=== PATIENT | female | born 1965 | race American Indian/Alaskan Native ===

== ENCOUNTER 2019-07-10 17:07 | Inpatient (IN) | payer MEDICAID ==
--- NOTE | 2019-07-10 17:21 | Emergency Department Report ---
Blank Doc - Documentation Documentation: 53 y/o with a myarid of issues ranging from cool burning sensations to left sanchez nd, lower back pain, chest pain and sob off and on and left eyepain and facial burning. off and on for the last 2 weeks. Seen pcp yesterday and was advised to come to ER yesterday but pt went home and dozed off so she decided to come to hospital today his initial assessment/diagnostic orders/clinical plan/treatment(s) is/are subject to change based on patient's health status, clinical progression and re- assessment by fellow clinical providers in the ED. Further treatment and workup at subsequent clinical providers discretion. Patient/guardians urged not to elope from the ED as their condition may be serious if not clinically assessed and managed. Initial orders include: labs evaluate for the need of CT
[2019-07-10] MEDS ORDERED: NACL 0.9% 1000 ML 1,000 ML IV ONE (18:35)
[2019-07-10 18:49] LABS: Basophils # (Auto) 0.1 K/mm3 (0.0-0.1); Basophils % (Auto) 0.9 % (0.0-1.8); Eosinophils # (Auto) 0.1 K/mm3 (0.0-0.4); Hematocrit 36.3 % (30.3-42.9); Hemoglobin 12.1 gm/dl (10.1-14.3); Lymphocytes # (Auto) 3.3 K/mm3 (1.2-5.4); Mean Corpuscular HGB Conc 33 % (30-34); Mean Corpuscular Volume 94 fl (79-97); Monocytes # (Auto) 0.4 K/mm3 (0.0-0.8); Monocytes % (Auto) 6.1 % (0.0-7.3); Platelet Count 252 K/mm3 (140-440); Red Blood Count 3.88 M/mm3 (3.65-5.03); Red Cell Distribution Width 12.9 % (13.2-15.2)
[2019-07-10 18:57] LABS: INR 1.02 (0.87-1.13)
[2019-07-10 18:58] LABS: Partial Thromboplastin Time 30.3 Sec. (24.2-36.6)
[2019-07-10] MEDS ORDERED: MORPHINE IV ONE (19:01)
[2019-07-10 19:06] LABS: Creatine Kinase MB 2.7 ng/mL (0.0-4.0)
[2019-07-10 19:08] LABS: Alanine Aminotransferase 33 units/L (7-56); Albumin 4.1 g/dL (3.9-5); BUN/Creatinine Ratio 14; Blood Urea Nitrogen 13 mg/dL (7-17); Calcium 8.8 mg/dL (8.4-10.2); Hemolysis Index 3
--- NOTE | 2019-07-10 19:13 | XRay Report ---
CHEST 2 VIEWS INDICATION: Chest Pain. COMPARISON: none FINDINGS: Support devices: None. Heart: Within normal limits. Lungs: No acute air space or interstitial disease. Pleura: No significant pleural effusion. No pneumothorax. Additional findings: None. IMPRESSION: 1. No acute findings. Signer Name: Albino Watson MD Signed: 07/10/2019 7:08 PM Workstation Name: [id number]
--- NOTE | 2019-07-10 19:22 | Emergency Department Report ---
ED General Adult HPI - General Chief complaint: Neuro Symptoms/Deficit Stated complaint: BACK PAIN/HAND PAIN Time Seen by Provider: 07/10/19 17:17 Source: patient Mode of arrival: Ambulatory Limitations: Physical Limitation - History of Present Illness Initial comments: This is a 53-year-old female nontoxic, well nourished in appearance, no acute signs of distress presents to the ED with c/o of bilateral upper and lower legs numbness and tingling sensation x years as well as chest pains and shortness of breathe. Stated that symptoms has worsened the past 2 weeks. Patient stated that has symptoms worse in the left sided then the right. Patient stated was sent by PCP for a CT of head. Patient denies any facial drooping, one-sided weakness, headache, or fatigue. Patient currently denies any pain. 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 Patient stated that her salesperson [employer] is trying to rule out if she has diabetic neuropathy. Patient denies any upper respiratory symptoms. Patient denies any hemoptysis, fever, chills, nausea, vomiting, headache, stiff neck, abdominal pain. Patient denies any recent travels or long car rides. Patient denies any recent surgeries or any sick contacts. Patient denies any drug allergies. Past medical history includes diabetes, CAD, and hypertension. Patient stated she has a talent sourcing specialist (Dr. Nieto) and saw him about 3 weeks ago. -: week(s) (2) Location: upper extremity, lower extremity Radiation: non-radiation Severity scale (0 -10): 3 Quality: burning Consistency: constant Improves with: none Worsens with: none Associated Symptoms: chest pain. denies: confusion, cough, diaphoresis, fever/chills, headaches, loss of appetite, malaise, nausea/vomiting, rash, syncope, weakness - Related Data Home Medications Medication Instructions Recorded Confirmed Last Taken Carvedilol [Coreg] 25 mg PO DAILY 04/22/15 07/10/19 07/09/19 Glimepiride [Amaryl] 2 mg PO BID 04/22/15 07/10/19 07/09/19 Insulin Glargine,Hum.rec.anlog 30 units SQ QHS 04/22/15 07/10/19 07/09/19 [Lantus Solostar] Simvastatin (Nf) [Zocor TAB] 20 mg PO QHS 04/22/15 07/10/19 07/09/19 raNITIdine HCl [Zantac 300 MG TAB] 300 mg PO BID 04/22/15 07/10/19 07/09/19 Zolpidem [Ambien] 10 mg PO QHS 07/10/19 07/10/19 07/04/19 traMADol [Ultram] 50 mg PO Q6HR PRN 07/10/19 07/10/19 07/09/19 Previous Rx's Medication Instructions Recorded Last Taken Type Naproxen [Naprosyn TAB] 500 mg PO BID PRN #20 tablet 04/23/15 07/09/19 Rx diazePAM TAB [Valium] 2 mg PO TID PRN #15 tablet 04/23/15 07/09/19 Rx HYDROcodone/APAP 5-325 [[place] 1 each PO Q6HR PRN #10 tablet 05/13/15 07/09/19 Rx 5/325] Allergies Allergy/AdvReac Type Severity Reaction Status Date / Time No Known Allergies Allergy Verified 07/10/19 17:08 ED Review of Systems ROS: Stated complaint: BACK PAIN/HAND PAIN Other details as noted in HPI Constitutional: denies: chills, fever Eyes: denies: eye pain, eye discharge, vision change ENT: denies: ear pain, throat pain Respiratory: shortness of breath. denies: cough, wheezing Cardiovascular: chest pain. denies: palpitations Endocrine: no symptoms reported Gastrointestinal: denies: abdominal pain, nausea, diarrhea Genitourinary: denies: urgency, dysuria, discharge Musculoskeletal: denies: back pain, joint swelling, arthralgia Skin: denies: rash, lesions Neurological: denies: headache, weakness, paresthesias Psychiatric: denies: anxiety, depression Hematological/Lymphatic: denies: easy bleeding, easy bruising ED Past Medical Hx - Past Medical History Hx Hypertension: Yes Hx Diabetes: Yes Additional medical history: high cholesterol - Surgical History Hx Appendectomy: Yes Additional Surgical History: total right knee replacement - Social History Smoking Status: Never Smoker - Medications Home Medications: Home Medications Medication Instructions Recorded Confirmed Last Taken Type Carvedilol [Coreg] 25 mg PO DAILY 04/22/15 07/10/19 07/09/19 History Glimepiride [Amaryl] 2 mg PO BID 04/22/15 07/10/19 07/09/19 History Insulin Glargine,Hum.rec.anlog 30 units SQ QHS 04/22/15 07/10/19 07/09/19 History [Lantus Solostar] Simvastatin (Nf) [Zocor TAB] 20 mg PO QHS 04/22/15 07/10/19 07/09/19 History raNITIdine HCl [Zantac 300 MG TAB] 300 mg PO BID 04/22/15 07/10/19 07/09/19 History Naproxen [Naprosyn TAB] 500 mg PO BID PRN #20 tablet 04/23/15 07/10/19 07/09/19 Rx diazePAM TAB [Valium] 2 mg PO TID PRN #15 tablet 04/23/15 07/10/19 07/09/19 Rx HYDROcodone/APAP 5-325 [[place] 1 each PO Q6HR PRN #10 tablet 05/13/15 07/10/19 07/09/19 Rx 5/325] Zolpidem [Ambien] 10 mg PO QHS 07/10/19 07/10/19 07/04/19 History traMADol [Ultram] 50 mg PO Q6HR PRN 07/10/19 07/10/19 07/09/19 History ED Physical Exam - General Limitations: Physical Limitation General appearance: alert, in no apparent distress - Head Head exam: Present: atraumatic, normocephalic - Eye Eye exam: Present: normal appearance - Neck Neck exam: Present: normal inspection, full ROM. Absent: tenderness, meningismus, lymphadenopathy - Respiratory Respiratory exam: Present: normal lung sounds bilaterally. Absent: respiratory distress, wheezes, rales, rhonchi, stridor, chest wall tenderness, accessory muscle use, decreased breath sounds, prolonged expiratory - Cardiovascular Cardiovascular Exam: Present: regular rate, normal rhythm, normal heart sounds. Absent: bradycardia, tachycardia, irregular rhythm, systolic murmur, diastolic murmur, rubs, gallop - GI/Abdominal GI/Abdominal exam: Present: soft, normal bowel sounds. Absent: distended, tenderness, guarding, rebound, rigid, diminished bowel sounds - Extremities Exam Extremities exam: Present: normal inspection, full ROM, normal capillary refill. Absent: tenderness - Back Exam Back exam: Present: normal inspection, full ROM. Absent: tenderness, CVA tenderness (R), CVA tenderness (L), muscle spasm, paraspinal tenderness, vertebral tenderness, rash noted - Neurological Exam Neurological exam: Present: alert, oriented X3, normal gait - Expanded Neurological Exam Expanded Patient oriented to: Present: person, place, time Cranial nerves: EOM's Intact: Normal, Facial Sensation: Normal Upper motor neuron: Pronator Drift: Normal, Sensory Extinction: Normal Motor strength exam: RUE: 5, LUE: 5, RLE: 5, LLE: 5 Best Eye Response ([place]): (4) open spontaneously Best Motor Response ([place]): (6) obeys commands Best Verbal Response ([place]): (5) oriented [place] Total: 15 - Psychiatric Psychiatric exam: Present: normal affect, normal mood - Skin Skin exam: Present: warm, dry, intact, normal color. Absent: rash ED Course Vital Signs 07/10/19 07/10/19 07/10/19 17:16 19:15 20:00 Temperature 98.4 F 98.4 F Pulse Rate 70 70 67 Respiratory 16 13 14 Rate Blood Pressure 144/84 138/75 Blood Pressure 138/75 [Left] O2 Sat by Pulse 98 97 98 Oximetry 07/10/19 07/10/19 07/10/19 20:30 21:00 21:30 Temperature Pulse Rate 62 63 59 L Respiratory 12 12 14 Rate Blood Pressure 148/82 133/75 150/86 Blood Pressure [Left] O2 Sat by Pulse 93 98 94 Oximetry - Reevaluation(s) Reevaluation #1: 07/10/19 19:24 Patient is speaking in full sentences with no signs of distress noted. - Consultations Consultation #1: 07/10/19 20:21 Patient has been consulted with Dr. Jha (talent sourcing specialist) about patient history, physical exam, and labs and agrees for admission and to give blood thinners and will perform a stress test tomorrow. Consultation #2: 07/10/19 22:31 Patient has been consulted with Dr. Manjarrez (hospitalist) about patient history, physical exam, and labs and accepts patients to services. ED Medical Decision Making - Lab Data Result diagrams: 07/10/19 18:23 10/24/19 18:38 - Medical Decision Making This is a 53-year-old female that presents with acute onset of A. fib, right bundle jamie block. Patient is currently stable and was examined by me. Neuro exam normal. CT head obtained. PAtient was consulted with Chase Simon. Dr. Jha consulted and patient to be admitted. EKG obtained with no STEMI and signed by Dr. Pelaez. Admitted by Dr. Manjarrez. Labs obtained. At time of admission, the patient does not seem toxic or ill in appearance. No acute signs of distress noted. Patient agrees to admission treatment plan of care. No further questions noted by the patient. - Differential Diagnosis diabetic neuropathy, STEMI, stroke Critical care attestation.: If time is entered above; I have spent that time in minutes in the direct care of this critically ill patient, excluding procedure time. ED Disposition Clinical Impression: RBBB A-fib Qualifiers: Atrial fibrillation type: unspecified Qualified Code(s): I48.91 - Unspecified atrial fibrillation Diabetic neuropathy Qualifiers: Diabetes mellitus type: type 2 Diabetes mellitus complication detail: with other neurological complication Qualified Code(s): E11.49 - Type 2 diabetes mellitus with other diabetic neurological complication Disposition: 09 OP ADMIT IP TO THIS HOSP Is pt being admited?: Yes Condition: Stable
--- NOTE | 2019-07-10 19:37 | Cat Scan Report ---
CT head/brain wo con INDICATION / CLINICAL INFORMATION: 53 years Female; left sided weakness. TECHNIQUE: Routine CT head without contrast. All CT scans at this location are performed using CT dos e reduction for ALARA by means of automated exposure control. COMPARISON: None. FINDINGS: BRAIN / INTRACRANIAL CONTENTS: No acute hemorrhage, mass effect, midline shift, hydrocephalus, or acu te, large territorial infarct. No chronic infarct or focal atrophy. No significant white matter abnor mality. CRANIOCERVICAL JUNCTION: No significant abnormality. ORBITS: No significant abnormality of visualized orbits. SINUSES / MASTOIDS: No significant abnormality the visualized paranasal sinuses or mastoid air cells. ADDITIONAL FINDINGS: None. IMPRESSION: 1. No focal mass, hemorrhage, hydrocephalus, or acute, large territorial infarct. Signer Name: Edmundo Snow MD, III Signed: 07/10/2019 7:33 PM Workstation Name: [id number]
[2019-07-10] MEDS ORDERED: ENOXAPARIN SUB-Q ONE (20:20)
[2019-07-10 22:03] LABS: Amphetamine Screen,Urine PRESUMPTIVE NEGATIVE; Benzodiazepines Screen,Urine PRESUMPTIVE NEGATIVE; Cannabinoid Screen,Urine PRESUMPTIVE NEGATIVE; Cocaine Screen,Urine PRESUMPTIVE NEGATIVE; Methadone Screen,Urine PRESUMPTIVE NEGATIVE; Opiate Screen,Urine PRESUMPTIVE NEGATIVE
[2019-07-10 22:28] LABS: Bilirubin,Urine NEG (Negative); Blood,Urine NEG (Negative); Color,Urine Straw (Yellow); Mucus,Urine FEW /HPF; Protein,Urine <15 mg/dL mg/dL (Negative); Urobilinogen,Urine < 2.0 mg/dL (<2.0); WBC,Urine < 1.0 /HPF (0.0-6.0)
--- NOTE | 2019-07-10 23:40 | History and Physical Report ---
History of Present Illness Date of examination: 07/10/19 History of present illness: 53-year-old woman history of hypertension, diabetes, hyperlipidemia comes emergency room with complaints that her entire body feels cold. Also complain of chest pain and left chest that started on Sunday which she described as a dull sensation, intermittent every 5 minutes, intensity follow 10, no radiation, can't identify exacerbating or relieving factors. Admits to shortness of breath, left side numbness. In the emergency room her EKG shows new onset A. fib eview Of Systems: Constitutional: no weight loss, fever, chills Ears, eyes, nose, mouth and throat: no nasal congestion, no nasal discharge, no sinus pressure, blurry vision, diplopia Neck: No neck pain or rigidity. Cardiovascular: No palpitations Respiratory: No cough Gastrointestinal: No hematochezia, abdominal pain Genitourinary : no dysuria, frequency , hematuria Musculoskeletal: no muscle ache , joint pain Integumentary: no rash, no pruritis Neurological: no parathesias, focal weakness Endocrine: no cold or heat intolerance, no polyuria or polydipsia Hematologic/Lymphatic: no easy bruising, no easy bleeding, no gland swelling Allergic/Immunologic: no urticaria, no angioedema. PAST MEDICAL HISTORY:hypertension, diabetes, hyperlipidemia PAST SURGICAL HISTORY:Appendectomy, bilateral knee replacement FAMILY HISTORY:hypertension, diabetes SOCIAL HISTORY: Denies tobacco, drugs, alcohol Medications and Allergies Allergies Allergy/AdvReac Type Severity Reaction Status Date / Time No Known Allergies Allergy Verified 07/10/19 23:59 Home Medications Medication Instructions Recorded Confirmed Last Taken Type Carvedilol [Coreg] 25 mg PO DAILY 04/22/15 07/10/19 07/09/19 History Glimepiride [Amaryl] 2 mg PO BID 04/22/15 07/10/19 07/09/19 History Insulin Glargine,Hum.rec.anlog 30 units SQ QHS 04/22/15 07/10/19 07/09/19 History [Lantus Solostar] Simvastatin (Nf) [Zocor TAB] 20 mg PO QHS 04/22/15 07/10/19 07/09/19 History raNITIdine HCl [Zantac 300 MG TAB] 300 mg PO BID 04/22/15 07/10/19 07/09/19 History Naproxen [Naprosyn TAB] 500 mg PO BID PRN #20 tablet 04/23/15 07/10/19 07/09/19 Rx diazePAM TAB [Valium] 2 mg PO TID PRN #15 tablet 04/23/15 07/10/19 07/09/19 Rx HYDROcodone/APAP 5-325 [[place] 1 each PO Q6HR PRN #10 tablet 05/13/15 07/10/19 07/09/19 Rx 5/325] Zolpidem [Ambien] 10 mg PO QHS 07/10/19 07/10/19 07/04/19 History traMADol [Ultram] 50 mg PO Q6HR PRN 07/10/19 07/10/19 07/09/19 History Exam - Physical Exam Narrative exam: General Apperance: The patient sitting in bed no acute distress HEENT: Normocephalic, atraumatic. Pupils equally round and reactive to light, extraocular movement intact, and no sclericterus or JVD or thyromegaly or nodule. Neck supple, no carotid bruit, mucous membranes moist, no exudate or erythema Heart: S1-S2, regular is rhythm Lungs: Clear to auscultation bilaterally, breathing comfortable Abdomen: Positive bowel sounds, soft, nontender, nondistended, no organomegaly Extremities: No edema cyanosis clubbing Skin: no rash, nodule, warm and dry Neuro:CN 2 -12 intact, motor/sensory intact, speech is fluent - Constitutional Vitals: Temp Pulse Resp BP Pulse Ox 98.4 F 62 12 146/83 94 07/10/19 19:15 07/10/19 23:30 07/10/19 23:30 07/10/19 23:30 07/10/19 23:30 Results - Labs CBC & Chem 7: 07/10/19 18:23 07/10/19 18:38 Labs: Abnormal lab results 07/10/19 07/10/19 07/10/19 Range/Units 18:23 18:23 18:38 RDW 12.9 L (13.2-15.2) % Lymph % (Auto) 49.0 H (13.4-35.0) % Sodium 135 L (137-145) mmol/L Chloride 97.0 L (98-107) mmol/L Glucose 160 H (65-100) mg/dL POC Glucose (70-105) Total Creatine Kinase 232 H (30-135) units/L 07/10/19 Range/Units 19:45 RDW (13.2-15.2) % Lymph % (Auto) (13.4-35.0) % Sodium (137-145) mmol/L Chloride (98-107) mmol/L Glucose (65-100) mg/dL POC Glucose 151 H (70-105) Total Creatine Kinase (30-135) units/L - Imaging and Cardiology Chest x-ray: report reviewed CT Scan - head: report reviewed Assessment and Plan Assessment New-onset A. fib Chest pain Hypertension Diabetes Hyperlipidemia Plan Admit to medicine start full dose Lovenox, consult cardiology Check cardiac enzymes,TSH, obtain stress test Check fingersticks, start sliding scale DVT prophalaxis, the morphine
[2019-07-11] MEDS ORDERED: SODIUM CHLORIDE FLUSH SYRINGE 10 ML IV PRN (00:15)
[2019-07-11] MEDS ORDERED: TYLENOL PO PRN (00:15)
[2019-07-11] MEDS ORDERED: ZOFRAN IV PRN (00:15)
[2019-07-11] MEDS ORDERED: D50W (25GM) Syringe IV PRN (00:15)
[2019-07-11] MEDS ORDERED: NACL 0.45% 1000 ML 1,000 ML IV SCH (01:00)
[2019-07-11] MEDS ORDERED: ENOXAPARIN SUB-Q SCH ×4 (01:00→22:00)
[2019-07-11] MEDS ORDERED: AFLURIA QUAD 2019-2020 (3YR UP) IM ONE ×2 (01:41→12:00)
[2019-07-11 02:47] LABS: Creatine Kinase MB 2.4 ng/mL (0.0-4.0)
[2019-07-11] MEDS: HumaLOG SUB-Q SCH ×2 (06:18→12:47)
[2019-07-11] MEDS ORDERED: LEXISCAN IV ONE (06:45)
[2019-07-11 07:09] LABS: Creatine Kinase MB 1.9 ng/mL (0.0-4.0)
[2019-07-11] MEDS ORDERED: SODIUM CHLORIDE FLUSH SYRINGE 10 ML IV SCH (10:00)
--- NOTE | 2019-07-11 14:17 | Progress Note ---
Assessment and Plan Assessment and plan: Chest pain Hypertension Diabetes mellitus type 2 Hyperlipidemia morbid obesity Plan Admitted to medicine patient evaluated by Cardiology and afib ruled out Cardiology following Stress test negative Check fingersticks, start sliding scale History Interval history: Chest pain Hospitalist Physical - Physical exam Narrative exam: Gen: Not in acute distress, lying in bed,morbidly obese HEENT: Normocephalic, atraumatic Neck: supple, no JVD Heart: S1 and S2 reg, no murmurs, rubs or gallop Lungs: Clear to auscultation, no rhonchi, no wheeze Abd: soft, non tender, non distended, normal BS, Ext: No edema, no clubbing, no cyanosis Neuro: Awake, alert, oriented X 3, no focal neurological signs, moves all ext - Constitutional Vitals: Temp Pulse Resp BP Pulse Ox 98.4 F 69 18 141/80 98 07/11/19 08:03 07/11/19 09:00 07/11/19 08:03 07/11/19 10:44 07/11/19 13:00 Results - Labs CBC & Chem 7: 07/10/19 18:23 07/10/19 18:38 Labs: Laboratory Last Values WBC 6.8 K/mm3 (4.5-11.0) 07/10/19 18:23 RBC 3.88 M/mm3 (3.65-5.03) 07/10/19 18:23 Hgb 12.1 gm/dl (10.1-14.3) 07/10/19 18:23 Hct 36.3 % (30.3-42.9) 07/10/19 18:23 MCV 94 fl (79-97) 07/10/19 18:23 MCH 31 pg (28-32) 07/10/19 18:23 MCHC 33 % (30-34) 07/10/19 18:23 RDW 12.9 % (13.2-15.2) L 07/10/19 18:23 Plt Count 252 K/mm3 (140-440) 07/10/19 18:23 Lymph % (Auto) 49.0 % (13.4-35.0) H 07/10/19 18:23 [place] % (Auto) 6.1 % (0.0-7.3) 07/10/19 18:23 Eos % (Auto) 2.0 % (0.0-4.3) 07/10/19 18:23 Baso % (Auto) 0.9 % (0.0-1.8) 07/10/19 18:23 Lymph # 3.3 K/mm3 (1.2-5.4) 07/10/19 18:23 [place] # 0.4 K/mm3 (0.0-0.8) 07/10/19 18:23 Eos # 0.1 K/mm3 (0.0-0.4) 07/10/19 18:23 Baso # 0.1 K/mm3 (0.0-0.1) 07/10/19 18:23 Seg Neutrophils % 42.0 % (40.0-70.0) 07/10/19 18:23 Seg Neutrophils # 2.9 K/mm3 (1.8-7.7) 07/10/19 18:23 PT 13.3 Sec. (12.2-14.9) 07/10/19 18:23 INR 1.02 (0.87-1.13) 07/10/19 18:23 APTT 30.3 Sec. (24.2-36.6) 07/10/19 18:23 Sodium 135 mmol/L (137-145) L 07/10/19 18:38 Potassium 3.9 mmol/L (3.6-5.0) 07/10/19 18:38 Chloride 97.0 mmol/L (98-107) L 07/10/19 18:38 Carbon Dioxide 24 mmol/L (22-30) 07/10/19 18:38 Anion Gap 18 mmol/L 07/10/19 18:38 BUN 13 mg/dL (7-17) 07/10/19 18:38 Creatinine 0.9 mg/dL (0.7-1.2) 07/10/19 18:38 Estimated GFR > 60 ml/min 07/10/19 18:38 BUN/Creatinine Ratio 14 % 07/10/19 18:38 Glucose 160 mg/dL (65-100) H 07/10/19 18:38 POC Glucose 147 (70-105) H 07/11/19 11:43 Calcium 8.8 mg/dL (8.4-10.2) 07/10/19 18:38 Total Bilirubin 0.30 mg/dL (0.1-1.2) 07/10/19 18:38 AST 32 units/L (5-40) 07/10/19 18:38 ALT 33 units/L (7-56) 07/10/19 18:38 Alkaline Phosphatase 106 units/L (35-129) 07/10/19 18:38 Total Creatine Kinase 181 units/L (30-135) H 07/11/19 05:58 CK-MB (CK-2) 1.9 ng/mL (0.0-4.0) 07/11/19 05:58 CK-MB (CK-2) Rel Index 1.0 (0-4) 07/11/19 05:58 Troponin T < 0.010 ng/mL (0.00-0.029) 07/11/19 05:58 Total Protein 8.0 g/dL (6.3-8.2) 07/10/19 18:38 Albumin 4.1 g/dL (3.9-5) 07/10/19 18:38 Albumin/Globulin Ratio 1.1 % 07/10/19 18:38 TSH 1.200 mlU/mL (0.270-4.200) 07/11/19 05:58 Urine Color Straw (Yellow) 07/10/19 21:20 Urine Turbidity Clear (Clear) 07/10/19 21:20 Urine pH 7.0 (5.0-7.0) 07/10/19 21:20 Ur Specific [place] 1.006 (1.003-1.030) 07/10/19 21:20 Urine Protein <15 mg/dl mg/dL (Negative) 07/10/19 21:20 Urine Glucose (UA) Neg mg/dL (Negative) 07/10/19 21:20 Urine Ketones Neg mg/dL (Negative) 07/10/19 21:20 Urine Blood Neg (Negative) 07/10/19 21:20 Urine Nitrite Neg (Negative) 07/10/19 21:20 Urine Bilirubin Neg (Negative) 07/10/19 21:20 Urine Urobilinogen < 2.0 mg/dL (<2.0) 07/10/19 21:20 Ur Leukocyte Esterase Neg (Negative) 07/10/19 21:20 Urine WBC (Auto) < 1.0 /HPF (0.0-6.0) 07/10/19 21:20 Urine RBC (Auto) 2.0 /HPF (0.0-6.0) 07/10/19 21:20 Urine Mucus Few /HPF 07/10/19 21:20 Urine Opiates Screen Presumptive negative 07/10/19 21:20 Urine Methadone Screen Presumptive negative 07/10/19 21:20 Ur Barbiturates Screen Presumptive negative 07/10/19 21:20 Ur Phencyclidine Scrn Presumptive negative 07/10/19 21:20 Ur Amphetamines Screen Presumptive negative 07/10/19 21:20 U Benzodiazepines Scrn Presumptive negative 07/10/19 21:20 Urine Cocaine Screen Presumptive negative 07/10/19 21:20 U Marijuana (THC) Screen Presumptive negative 07/10/19 21:20 Drugs of Abuse Note Disclamer 07/10/19 21:20 Active Medications - Current Medications Current Medications: Generic Name Dose Route Start Last Admin Trade Name Freq PRN Reason Stop Dose Admin Acetaminophen 650 mg 07/11/19 00:15 Tylenol PO Q4H PRN Pain MILD(1-3)/Fever >100.5/HE Dextrose 50 ml 07/11/19 00:15 D50w (25gm) Syringe IV Q30MIN PRN Hypoglycemia Enoxaparin Sodium 100 mg 07/11/19 10:00 Enoxaparin SUB-Q Q12HR [facility] Insulin Human Lispro 0 unit 07/11/19 06:00 07/11/19 06:18 Humalog SUB-Q Not Given Q6HR [facility] Protocol Morphine Sulfate 2 mg 07/11/19 00:15 Morphine IV Q4H PRN Pain, Moderate (4-6) Ondansetron HCl 4 mg 07/11/19 00:15 Zofran IV Q8H PRN Nausea And Vomiting Sodium Chloride 10 ml 07/11/19 10:00 Sodium Chloride Flush Syringe 10 Ml IV BID GIRISH Sodium Chloride 10 ml 07/11/19 00:15 Sodium Chloride Flush Syringe 10 Ml IV PRN PRN LINE FLUSH
--- NOTE | 2019-07-11 14:27 | Event Note ---
Date: 07/11/19 Detailed cardiology consultation dictated. Pt presented with c/o chest pain, dyspnea, neurological symptoms. She reports she has seen Dr. Nieto in the past but there are no records of this patient in the [facility] system. Admission ECG showed NSR with PACs (NOT AFib) with RBBB, RBBB has since resolved. No evidence of atrial fibrillation on telemetry since admission. She underwent lexiscan MPI stress test this morning which was negative. We will obtain echo and continue to monitor on telemetry overnight. Tiffanie MILAN NP / DR. Juan WHITAKER
[2019-07-11] MEDS: MORPHINE IV PRN (16:00)
--- NOTE | 2019-07-11 17:07 | Treadmill Report ---
NUCLEAR STRESS TEST PROTOCOL: The patient was brought to the stress lab in a postoperative state, given 10 mCi of technetium 99m at rest. The patient underwent rest imaging. The patient underwent Lexiscan stress test. At peak stress, the patient was given 26 mCi of technetium 99m. Shortly thereafter, the patient underwent stress imaging. Raw imaging reveals mild GI artifact. No significant motion artifact. SPECT images examined carefully in horizontal long axis, vertical long axis, short axis views. There is normal homogenous uptake of radioisotope in all reported segments. No evidence of significant fixed or reversible perfusion defects suggestive of prior infarction or ischemia. Gated wall motion reveals normal systolic thickening, calculated ejection fraction of 60%. No TID. CONCLUSIONS: 1. Normal myocardial perfusion scan without evidence of active ischemia or prior infarction. 2. Normal left ventricular systolic performance without evidence of transient ischemic dilatation or stress-induced segmental wall motion abnormalities. 3. Normal Lexiscan stress test without evidence of diagnostic ST changes, arrhythmias, or chest pain during stress or recovery. [facility]# [id number] JENSEN/ROMMEL
--- NOTE | 2019-07-11 18:44 | Consultation ---
REFERRING PHYSICIAN: Dr. Daya Manjarrez. HISTORY OF PRESENT ILLNESS: The patient is a pleasant, 53-year-old, -[place] female, who has a medical history of diabetes, coronary artery disease, and hypertension, who presents to the Emergency Room with a myriad of symptoms including bilateral upper and lower leg pain, hand numbness, sharp chest pain, and shortness of breath. This has been going on for 2 weeks. Inpatient and outpatient medications are reviewed. She is seen in stress lab. She is now chest pain free, feeling much better. Apparently, her last hemoglobin A1c was 11. She also sees Neurology who is trying to rule out diabetic neuropathy. ALLERGIES: No known drug, food, or environmental allergies. REVIEW OF SYSTEMS: As per HPI. No abdominal pain, blurred vision, headache, fevers, chills, skin rashes, back pain, or joint pain. PAST MEDICAL HISTORY: As aforementioned. PAST SURGICAL HISTORY: Total right knee replacement. SOCIAL HISTORY: Lifetime nonsmoker. PHYSICAL EXAMINATION: VITAL SIGNS: Blood pressure is 140/80. She is afebrile. Tele reveals sinus rhythm. O2 sats 98% on room air. Respirations 12. GENERAL: This is a middle-aged, -[place] female in no apparent distress, oriented x 3. HEENT: Sclerae icteric. NECK: Supple. No mass or JVD. CHEST: Clear to auscultation bilaterally. Good air movement. CARDIOVASCULAR: Regular rhythm, S1, S2. ABDOMEN: Soft, nontender, and nondistended. Normoactive bowel sounds in all 4 quadrants. No organomegaly or masses or bruits. EXTREMITIES: No cyanosis, clubbing, edema. Good peripheral pulses. SKIN: Intact. No rashes. LABORATORY DATA: Initial EKG in the ER, likely shows sinus bradycardia, heart rate of 55, with a right bundle-branch block and left anterior fascicular block. I do not see any evidence of atrial fibrillation here. However, a.m. EKG shows normal sinus rhythm, normal axis, and QRS is narrowed to normal. No atrial fibrillation seen on Tele overnight. Nuclear stress test this morning was negative for ischemia, normal LV function. Echocardiogram is pending. LABORATORY DATA: CBC is essentially normal. Creatinine and potassium are normal. Troponins are negative x 2. UDS is negative as is the urinalysis. Chest x-ray is unremarkable for acute findings. Head CT is also unremarkable for acute findings. ASSESSMENT AND PLAN: In summary, the patient is a pleasant, 53-year-old, -[place] female here with several nonspecific symptoms including leg weakness, hand numbness, atypical chest pain, and shortness of breath. Nuclear stress test is unremarkable. Initial EKG shows sinus bradycardia with left anterior fascicular block. Follow up EKG shows narrowing of QRS, normal sinus rhythm. Nuclear stress test is unremarkable. Follow up on echocardiogram. We would watch her on Tele overnight. Aggressive primary and secondary prevention measures discussed. Thank you for the consultation. We will be happy following with you. JOB# [id number]/[id number]
[2019-07-11] MEDS ORDERED: AMBIEN PO SCH (22:00)
[2019-07-12] MEDS: HumaLOG SUB-Q SCH ×2 (00:58→05:59)
[2019-07-12] MEDS: MORPHINE IV PRN (08:09)
--- NOTE | 2019-07-12 10:15 | Progress Note ---
Assessment and Plan Atypical chest pain CAD Hypertension Diabetes Stable cardiac status myocardial perfusion scan: Negative for ischemia Echo: Moderate LVH, EF 50-55% Patient should follow with Dr. Monica Jha as outpatient [phone] Subjective Date of service: 07/12/19 Principal diagnosis: atypical chest pain Interval history: Patient is sitting up in bed with complaints of a headache. She also reports that her hands are cold. She denies any chest pain or shortness of breath. Objective Vital Signs Temp Pulse Resp BP Pulse Ox 07/12/19 08:21 96 07/12/19 08:09 24 07/12/19 05:05 98.4 F 77 18 151/83 95 07/11/19 23:19 98.7 F 73 18 152/81 92 07/11/19 20:23 98.7 F 70 20 133/73 90 07/11/19 19:07 77 07/11/19 17:00 69 07/11/19 16:00 20 07/11/19 13:00 98 07/11/19 10:44 141/80 07/11/19 10:43 139/79 07/11/19 10:42 142/81 07/11/19 10:41 140/82 07/11/19 10:40 135/79 - Physical Examination General: No Apparent Distress HEENT: Positive: PERRL Neck: Positive: neck supple Cardiac: Positive: Reg Rate and Rhythm, S1/S2 Lungs: Positive: clear to auscultation, Normal Breath Sounds Neuro: Positive: Grossly Intact Abdomen: Positive: Soft, Active Bowel Sounds Gait: Normal Gait Extremities: Present: normal, warm. Absent: edema
[2019-07-12 10:30] LABS: Basophils # (Auto) 0.1 K/mm3 (0.0-0.1); Basophils % (Auto) 1.3 % (0.0-1.8); Eosinophils # (Auto) 0.1 K/mm3 (0.0-0.4); Hematocrit 38.8 % (30.3-42.9); Hemoglobin 13.1 gm/dl (10.1-14.3); Lymphocytes # (Auto) 3.2 K/mm3 (1.2-5.4); Lymphocytes % (Auto) 48.2 % (13.4-35.0); Mean Corpuscular HGB Conc 34 % (30-34); Mean Corpuscular Volume 93 fl (79-97); Monocytes # (Auto) 0.4 K/mm3 (0.0-0.8); Monocytes % (Auto) 6.5 % (0.0-7.3); Platelet Count 252 K/mm3 (140-440); Red Blood Count 4.15 M/mm3 (3.65-5.03); Red Cell Distribution Width 13.1 % (13.2-15.2)
[2019-07-12 10:54] LABS: BUN/Creatinine Ratio 12; Blood Urea Nitrogen 11 mg/dL (7-17); Hemolysis Index 16
[2019-07-12] MEDS ORDERED: COREG PO SCH (12:00)
--- NOTE | 2019-07-12 12:07 | Discharge Summary ---
Providers - Providers Date of Admission: 07/10/19 23:39 Date of discharge: 07/12/19 Attending physician: MATTHEW CHÁVEZ 07/11/19 00:19 Consult to Physician [CONS] Routine Comment: Consulting Provider: WILLIAM WHITAKER Physician Instructions: Reason For Exam: afib/cp Primary care physician: ESTUARDO SWIFT Hospitalization Condition: Fair Disposition: DC-01 TO HOME OR SELFCARE Exam - Constitutional Vitals: Temp Pulse Resp BP Pulse Ox 98.4 F 77 24 151/83 96 07/12/19 05:05 07/12/19 05:05 07/12/19 08:09 07/12/19 05:05 07/12/19 08:21 Plan Activity: advance as tolerated Diet: low fat, low cholesterol, low salt, diabetic Plan of Treatment: 1.Follow up with Dr. Estuardo Swift in 1 week. 2.Follow up with Dr. William Whitaker, cardiology in 1 week Follow up with: ESTUARDO SWIFT MD [Primary Care Provider] - 7 Days
[2019-07-12 12:42] VITALS: BP 135/69
== END 2019-07-12 16:26 | disposition home or self-care (01) | DRG 313 ==
LOC: ED 17:07 → 4A 23:39
PROVIDERS: ADMIT Internal Medicine; ATTEND Internal Medicine
DX: R07.89 Other chest pain (principal); I25.10 Atherosclerotic heart disease of native coronary artery without angina pectoris; E78.00 Pure hypercholesterolemia, unspecified; I45.10 Unspecified right bundle-branch block; E11.49 Type 2 diabetes mellitus with other diabetic neurological complication; Z96.653 Presence of artificial knee joint, bilateral; I10 Essential (primary) hypertension; E78.5 Hyperlipidemia, unspecified; Z90.49 Acquired absence of other specified parts of digestive tract; Z82.49 Family history of ischemic heart disease and other diseases of the circulatory system; Z83.3 Family history of diabetes mellitus; Z79.4 Long term (current) use of insulin; Z79.899 Other long term (current) drug therapy; Z68.41 Body mass index [BMI] 40.0-44.9, adult
CPT/HCPCS: 36415; 70450; 71046; 78452; 80048; 80053; 80307; 81001; 82550; 82553; 82962; 84443; 84484; 85025; 85610; 85730; 90686; 93005; 93010; 93017; 93306; G0378; A9502; J1650; J2270; J2785; J7030